=== PATIENT | male | born 1965 | race Two or more races ===

== ENCOUNTER 2019-12-27 00:38 | Inpatient (IN) | payer OTHER ==
[~2019-12-27] VITALS: Ht 167.6 cm; Wt 58.5 kg
[2019-12-27] VITALS (7 sets, daily range): BP systolic 92–116; BP diastolic 54–75
[2019-12-27] MEDS ORDERED: MAGNESIUM HYDROXIDE 30 ML UDC PO PRN (06:00)
[2019-12-27] MEDS ORDERED: MAG HYDROX/AL HYDROX/SIMETH 30 ML UDC PO PRN (06:00)
[2019-12-27] MEDS ORDERED: ONDANSETRON HCL/PF 4 MG/2 ML VIAL IVP PRN (06:00)
[2019-12-27] MEDS ORDERED: ZOLPIDEM TARTRATE 5 MG TABLET PO PRN (06:00)
[2019-12-27] MEDS ORDERED: Z GUARD REMEDY 2 OZ OINT TP PRN (06:00)
--- NOTE | 2019-12-27 06:30 | NUR ---
RN Notes Direct admit from [place], patient awake, alert and oriented x4, on room air with good saturation. Tele monitor reads sinus rhythm with heart rate at 98. Denies chest pain, SOB, nausea and vomiting. Vital signs stable, afebrile. Verbalizing pain on left lower leg and foot 5/10 when touch and walking. IV access on left AC patent and intact. Skin assessment done, intact. Plan of care and fall precaution discussed with the patient and verbalized understanding. Kept comfortable and attended with call light within reach. Awaiting for orders to verify. Will continue to monitor and will endorse accordingly.
[2019-12-27 07:09] LABS: BASOPHILS % (AUTO) 0.1 % (0.0-2.0); EOSINOPHILS % (AUTO) 0.4 % (0.0-6.0); HEMATOCRIT 28 % (39-51); HEMOGLOBIN 9.1 g/dL (13.5-17.5); LYMPHOCYTES # (AUTO) 0.6 /CMM (0.8-4.8); LYMPHOCYTES % (AUTO) 3.7 % (20.0-44.0); MEAN CORPUSCULAR HGB CONC 32 g/dl (31.0-36.0); MEAN CORPUSCULAR VOLUME 84 fL (80-96); MONOCYTES # (AUTO) 0.5 /CMM (0.1-1.30); MONOCYTES % (AUTO) 2.8 % (2.0-12.0); NEUTROPHILS # (AUTO) 16.2 /CMM (1.8-8.9); PLATELET COUNT (AUTO) 461 /CMM (150-450); RED BLOOD CELL COUNT(AUTO) 3.37 MIL/uL (4.5-6.0); WHITE BLOOD COUNT (AUTO) 17.4 K/uL (4.3-11.0)
[2019-12-27 07:18] LABS: ALBUMIN 1.8 g/dL (3.4-5.0); BILIRUBIN,DIRECT 0.2 mg/dL (0.0-0.2); BILIRUBIN,TOTAL 0.6 mg/dL (0.2-1.0); TOTAL PROTEIN, SERUM 6.5 g/dL (6.4-8.2)
[2019-12-27 07:20] LABS: CALCIUM, SERUM 8.9 mg/dL (8.5-10.1); CREATININE 0.7 mg/dL (0.6-1.3); MAGNESIUM 1.6 mg/dL (1.8-2.4); PHOSPHORUS 3.4 mg/dL (2.5-4.9); POTASSIUM 4.1 mmol/L (3.5-5.1)
--- NOTE | 2019-12-27 07:32 | NUR ---
RN Notes Received patient in bed resting comfortably in moderate high back rest. awake, alert and oriented x4, on room air, tolerating well. no signs of distress noted at this time. on Tele monitor reads sinus rhythm with heart rate at 90's. Denies chest pain, SOB, nausea and vomiting. IV access on left AC patent and intact. safety measures in place, bed in lowest locked position with side rails up x2. call light within reach. Will continue to monitor.
[2019-12-27] MEDS: IV NS 0.9% 1,000 ML IV SCH (08:21)
[2019-12-27] MEDS: Magnesium 1GM/D5W 100ML PREMIX 100 ML IV SCH ×2 (10:34→11:52)
[2019-12-27 14:35] LABS: APPEARANCE,URINE CLEAR (CLEAR); BILIRUBIN,URINE NEGATIVE (NEGATIVE); BLOOD, URINE LARGE Ery/uL (NEGATIVE); COLOR,URINE YELLOW (YELLOW); KETONES,URINE NEGATIVE (NEGATIVE); LEUKOCYTE ESTERASE ,URINE TRACE (NEGATIVE); NITRITE, URINE NEGATIVE (NEGATIVE); PROTEIN,URINE TRACE mg/dl (NEGATIVE); UGLUCOSE NEGATIVE (NEGATIVE)
[2019-12-27 14:48] LABS: BACTERIA,URINE 1+ /HPF (None Seen); COARSE GRANULAR CASTS,URINE Few /LPF (None Seen); HYALINE CASTS, URINE Few /LPF (None Seen); RBC,URINE 21-50 /HPF (0-2); SQUAMOUS EPITHELIAL CELL,UR Few /HPF (None Seen)
[2019-12-27] MEDS: ENSURE ENLIVE 237 ML LIQUID (VANILLA) PO SCH ×2 (16:03→17:07)
[2019-12-27] MEDS: ACETAMINOPHEN 325 MG TABLET PO PRN (17:07)
--- NOTE | 2019-12-27 18:35 | NUR ---
RN Notes patient in bed resting comfortably in moderate high back rest. awake, alert and oriented x4, on room air, tolerating well. no signs of distress noted throughout the shift. on Tele monitor reads sinus rhythm with heart rate at 90's. Denies chest pain, SOB, nausea and vomiting. IV fluids on left AC with NS running @100 ml/hr. patent and intact. safety measures in place, bed in lowest locked position with side rails up x2. call light within reach. Will endorse to shank piece tacker nurse for guzman.
--- NOTE | 2019-12-27 19:12 | NUR ---
MS RN NOTES PATIENT IN BED, AWAKE, ALERT AND ORIENTED X 4. BREATHING EVEN AND UNLABORED ON ROOM AIR. SHOWS NO SIGNS OF ACUTE RESPIRATORY DISTRESS. NO ACUTE PAIN. IV ON LAC 20G RUNNING NS AT 100ML/HR. SHOWS NO SIGNS OF INFILTRATION NO REDNESS. ITS CLEAN, DRY, AND INTACT. SAFETY PRECAUTIONS IN PLACE. BED IN LOWEST POSITION, LOCKED, AND CALL LIGHT KEPT WITHIN REACH. WILL CONTINUE TO MONITOR.
[2019-12-27] MEDS ORDERED: CEFTRIAXONE 1 G in IV D5W 50 ML IV SCH (20:00)
[2019-12-28 00:40] VITALS: BP 114/69
[2019-12-28] MEDS: IV NS 0.9% 1,000 ML IV SCH (02:15)
[2019-12-28 04:00] VITALS: BP 120/70
--- NOTE | 2019-12-28 06:41 | NUR ---
VIBRATION TECHNICIAN NOTES PATIENT IN BED, ASLEEP ALERT AND ORIENTED X 4. BREATHING EVEN AND UNLABORED ON ROOM AIR. SHOWS NO SIGNS OF ACUTE RESPIRATORY DISTRESS. NO ACUTE PAIN. IV ON RAC 20G RUNNING NS AT 100ML/HR. SHOWS NO SIGNS OF INFILTRATION NO REDNESS. ITS CLEAN, DRY, AND INTACT. ALL DUE MEDICATIONS GIVEN. SAFETY PRECAUTIONS IN PLACE. BED IN LOWEST POSITION, LOCKED, AND CALL LIGHT KEPT WITHIN REACH. WILL ENDORSE TO ONCOMING NURSE.
[2019-12-28 07:04] LABS: BASOPHILS # (AUTO) 0.1 /CMM (0.0-0.2); BASOPHILS % (AUTO) 0.4 % (0.0-2.0); EOSINOPHILS % (AUTO) 0.8 % (0.0-6.0); HEMATOCRIT 26 % (39-51); HEMOGLOBIN 8.5 g/dL (13.5-17.5); LYMPHOCYTES # (AUTO) 1.3 /CMM (0.8-4.8); LYMPHOCYTES % (AUTO) 8.8 % (20.0-44.0); MEAN CORPUSCULAR HGB CONC 33 g/dl (31.0-36.0); MEAN CORPUSCULAR VOLUME 83 fL (80-96); MONOCYTES # (AUTO) 0.6 /CMM (0.1-1.30); MONOCYTES % (AUTO) 4.1 % (2.0-12.0); NEUTROPHILS # (AUTO) 12.5 /CMM (1.8-8.9); NEUTROPHILS % (AUTO) 85.9 % (43.0-81.0); PLATELET COUNT (AUTO) 483 /CMM (150-450); RED BLOOD CELL COUNT(AUTO) 3.09 MIL/uL (4.5-6.0); WHITE BLOOD COUNT (AUTO) 14.6 K/uL (4.3-11.0)
--- NOTE | 2019-12-28 07:30 | NUR ---
INSPECTOR RETURNED MATERIALS NOTES RECEIVED PATIENT IN BED ASLEEP, AROUSABLE TO VERBAL AND TACTILE STIMULI. HOB ELEVATED. DENIES C/O PAIN AT THIS TIME. ON TELEMONITORING. SR: 96. RAC # 20 INFUSING NS @ 100ML/HR HAYLEY WELL. BED IN LOWEST POSITION, LOCKED. BED ALARM ON. CALL LIGHT WITHIN REACH. ABLE TO VERBALIZE NEEDS.
[2019-12-28 08:00] VITALS: BP 90/55
[2019-12-28 08:09] LABS: ALBUMIN 1.8 g/dL (3.4-5.0); BILIRUBIN,TOTAL 0.4 mg/dL (0.2-1.0); CALCIUM, SERUM 8.5 mg/dL (8.5-10.1); CREATININE 0.8 mg/dL (0.6-1.3); MAGNESIUM 1.8 mg/dL (1.8-2.4); POTASSIUM 3.6 mmol/L (3.5-5.1); TOTAL PROTEIN, SERUM 6.2 g/dL (6.4-8.2)
[2019-12-28 08:16] LABS: PROSTATE SPECIFIC ANTIGEN SCR 0.79 ng/mL (0.00-4.00); THYROID STIMULATING HORMONE 2.55 uIU/mL (0.358-3.74)
[2019-12-28 08:51] LABS: FREE PSA 0.1 ng/mL (0.00-45)
[2019-12-28] MEDS: ACETYLCYSTEINE 10% 3,000 MG/30 ML VIAL PO SCH ×2 (09:00→17:17)
[2019-12-28] MEDS: ENSURE ENLIVE 237 ML LIQUID (VANILLA) PO SCH ×3 (09:00→17:18)
[2019-12-28] MEDS: ASPIRIN EC 81 MG TABLET.DR PO SCH (09:00)
--- NOTE | 2019-12-28 09:48 | NUR ---
YOUTH SERVICES SPECIALIST NOTES AM MEDS HELD, AWAITING FOR CT OF ABD
--- NOTE | 2019-12-28 10:15 | NUR ---
ENGINEER INTERN NOTES PATIENT OFF UNIT, WENT FOR CT OF ABD
[2019-12-28] MEDS ORDERED: IOHEXOL-350 100 ML VIAL IV ONE (10:21)
[2019-12-28] MEDS ORDERED: CT SWABBABLE VALVE TRANS SET 1 EA INFUS.SET MC ONE (10:21)
[2019-12-28] MEDS ORDERED: IV NS 0.9% 250 ML IV ONE (10:21)
[2019-12-28] MEDS: IV NS 0.9% 1,000 ML IV PRN (13:18)
[2019-12-28 16:00] VITALS: BP 108/63
[2019-12-28] MEDS: ACETAMINOPHEN 325 MG TABLET PO PRN (17:17)
[2019-12-28] MEDS ORDERED: FEE PK DOSING 1 MIN EA MC ONE (18:27)
--- NOTE | 2019-12-28 18:47 | NUR ---
AUTOMOTIVE GLAZIER NOTES PATIENT RESTING COMFORTABLY IN BED CONVERSING WITH VISITORS. NO S/S OF RESPIRATORY DISTRESS. HOB ELEVATED. DENIES ANY C/O PAIN NOR DISCOMFORT AT THIS TIME. REMAINS ON TELEMONITORING. SR: 90-97. LEFT HAND # 22 INFUSING NS @ 100ML/HR HAYLEY WELL. LEFT AC #18 AND RIGHT AC # 20 SL INTACT AND PATENT. BED IN LOWEST POSITION, LOCKED. BED ALARM ON. CALL LIGHT WITHIN REACH. IN NO APPARENT DISTRESS.
[2019-12-28 20:00] VITALS: BP 94/60
[2019-12-28] MEDS: VANCOMYCIN 1 GM in IV D5W 250ml IV SCH (20:12)
[2019-12-28] MEDS: HYDROCODONE/APAP 5/325MG 1 EACH TABLET PO PRN (20:56)
[2019-12-28] MEDS: CEFTRIAXONE 2 G in IV D5W 100 ML IV SCH (21:17)
[2019-12-29] VITALS: BP 95/60
[2019-12-29] MEDS: IV NS 0.9% 1,000 ML IV PRN ×2 (01:23→15:21)
[2019-12-29 04:00] VITALS: BP 104/61
[2019-12-29] MEDS: VANCOMYCIN 1 GM in IV D5W 250ml IV SCH ×3 (04:42→20:04)
[2019-12-29] MEDS: HYDROCODONE/APAP 5/325MG 1 EACH TABLET PO PRN ×2 (04:52→08:18)
--- NOTE | 2019-12-29 06:23 | NUR ---
ACTING INSTRUCTOR NOTES AWAKE & RESPONSIVE. NOT IN ANY DISTRESS. NO SOB NOTED. DENIES ANY PAIN OR DISCOMFORT AT THIS TIME. ON TELE SR @ 65 WITH IVF INFUSING WELL. MONITORED ACCORDINGLY. CALL LIGHT WITHIN REACH. BED IN LOWEST POSITION. SR UP X 2 FOR SAFETY. WILL ENDORSE TO NEXT SHIFT.
[2019-12-29 07:19] LABS: BASOPHILS # (AUTO) 0.1 /CMM (0.0-0.2); BASOPHILS % (AUTO) 0.4 % (0.0-2.0); EOSINOPHILS % (AUTO) 1.9 % (0.0-6.0); HEMATOCRIT 25 % (39-51); HEMOGLOBIN 8.1 g/dL (13.5-17.5); LYMPHOCYTES # (AUTO) 1.2 /CMM (0.8-4.8); LYMPHOCYTES % (AUTO) 8.4 % (20.0-44.0); MEAN CORPUSCULAR HGB CONC 33 g/dl (31.0-36.0); MEAN CORPUSCULAR VOLUME 84 fL (80-96); MONOCYTES # (AUTO) 0.7 /CMM (0.1-1.30); MONOCYTES % (AUTO) 5.2 % (2.0-12.0); NEUTROPHILS # (AUTO) 11.6 /CMM (1.8-8.9); NEUTROPHILS % (AUTO) 84.1 % (43.0-81.0); PLATELET COUNT (AUTO) 449 /CMM (150-450); RED BLOOD CELL COUNT(AUTO) 2.93 MIL/uL (4.5-6.0); WHITE BLOOD COUNT (AUTO) 13.8 K/uL (4.3-11.0)
--- NOTE | 2019-12-29 07:23 | NUR ---
TELE/RN OPENING NOTES RECEIVED PATIENT AWAKE & RESPONSIVE. NOT IN ANY DISTRESS. NO SOB NOTED. DENIES ANY PAIN OR DISCOMFORT AT THIS TIME. ON TELE SR 73, WITH IVF INFUSING WELL. MONITORED ACCORDINGLY. CALL LIGHT WITHIN REACH. BED IN LOWEST POSITION. WILL CONTINUE TO MONITOR.
[2019-12-29 07:57] LABS: CALCIUM, SERUM 8.4 mg/dL (8.5-10.1); CREATININE 0.7 mg/dL (0.6-1.3); MAGNESIUM 1.6 mg/dL (1.8-2.4); PHOSPHORUS 3.6 mg/dL (2.5-4.9); POTASSIUM 3.3 mmol/L (3.5-5.1)
[2019-12-29 08:00] VITALS: BP 98/62
[2019-12-29] MEDS: ASPIRIN EC 81 MG TABLET.DR PO SCH (08:18)
[2019-12-29] MEDS: ENSURE ENLIVE 237 ML LIQUID (VANILLA) PO SCH ×5 (08:19→16:30)
[2019-12-29] MEDS: ACETYLCYSTEINE 10% 3,000 MG/30 ML VIAL PO SCH ×2 (08:27→16:31)
[2019-12-29] MEDS: Magnesium 1GM/D5W 100ML PREMIX 100 ML IV SCH ×2 (09:54→11:03)
[2019-12-29] MEDS ORDERED: POTASSIUM CHLORIDE 20 MEQ TAB.PRT.SR PO SCH (11:00)
[2019-12-29 11:33] LABS: IMMUNOGLOBULIN A, SERUM 310 mg/dL (90-386); IMMUNOGLOBULIN G, SERUM 1329 mg/dL (700-1600); IMMUNOGLOBULIN M, SERUM 141 mg/dL (20-172)
[2019-12-29 16:00] VITALS: BP 91/61
--- NOTE | 2019-12-29 18:28 | NUR ---
TELE/RN CLOSING NOTES PATIENT IS LYING ON THE BED COMFORTABLY ALERT AND ORIENTED X4. DENIES PAIN AT THIS TIME. NO RESPIRATORY DISTRESS AND NO SOB NOTED. STILL ON TELE MONITOR .IVF OF NS1L @ 100ML/HR INFUSING WELL. RAC 20G, LAC 18G, L HAND 22G INTACT AND PATENT. SEEN AND EXAMINED BY MD WITH ORDER MADE AND CARRIED OUT. ALL DUE MEDS WAS ADMINISTERED. PATIENT STILL PENDING FOR HIGHER LEVEL OF CARE FOR CARDIAC SURGERY. KEPT PATIENT DRY AND COMFORTABLE THE WHOLE SHIFT. SAFETY PRECAUTION WAS IN PLACE BED IN LOWEST POSITION, SIDE RAILS UP X2. CALL LIGHT WITHIN REACH. WILL ENDORSED TO CLINICAL NURSE EDUCATOR FOR NIKOLE.
--- NOTE | 2019-12-29 19:25 | NUR ---
TELE/RN OPENING NOTES RECEIVED PATIENT IN BED, AWAKE, ALERT X3. ABLER TO VERBALIZE NEEDS, [place]ER SPEAKING, CAN UNDERSTAND LITTLE SERBIAN, RESPIRATIONS EVEN AND UNLABORED, ON ROOM AIR, SKIN WARM TO TOUCH, DENIES PAIN AT THIS TIME, NO GUARDING OR GRIMACE. BED LOCKED, CALL LIGHTS WITHIN REACH, USES URINAL BUT CAN AMBULATE WITH SUPERVISION. RECEIVED ENDORSEMENT FROM AM RN FOR NIKOLE. IV FLUIDS BEING INFUSED , IV SITE WITH NO S/S OF INFILTRATION. WILL MONITOR, ON TELE READING AT SR.
[2019-12-29 20:00] VITALS: BP 93/45
[2019-12-29] MEDS: CEFTRIAXONE 2 G in IV D5W 100 ML IV SCH (21:43)
[2019-12-30] VITALS (7 sets, daily range): BP systolic 93–106; BP diastolic 45–63
[2019-12-30] MEDS: IV NS 0.9% 1,000 ML IV PRN ×2 (03:05→17:14)
[2019-12-30] MEDS: VANCOMYCIN 1 GM in IV D5W 250ml IV SCH ×3 (03:14→20:23)
--- NOTE | 2019-12-30 06:22 | NUR ---
321-2 TELE/RN CLOSING NOTES PATIENT ASSISTED WITH ALL NEEDS, SLEPT DURING THE NIGHT, ABLE TO COOPERATE WITH CARE. IV ANTIBIOTIC INFUSED, MONITORED FOR ANY CHANGES. ABLE TO URINATE AND WITH ADEQUATE URINE OUTPUT, BLOOD PRESSURE IN LOW SIDE. IV FLUIDS AT 10 ML/HR. KEPT COMFORTABLE. PAIN REPORTED BUT NON PHARMACOLOGICAL MEASURES PROVIDED,WILL ENDORSE TO AM RN FOR NIKOLE.
[2019-12-30 06:37] LABS: BASOPHILS % (AUTO) 0.4 % (0.0-2.0); EOSINOPHILS % (AUTO) 1.3 % (0.0-6.0); HEMATOCRIT 25 % (39-51); HEMOGLOBIN 8.2 g/dL (13.5-17.5); LYMPHOCYTES # (AUTO) 1.2 /CMM (0.8-4.8); LYMPHOCYTES % (AUTO) 10.1 % (20.0-44.0); MEAN CORPUSCULAR HGB CONC 33 g/dl (31.0-36.0); MEAN CORPUSCULAR VOLUME 84 fL (80-96); MONOCYTES # (AUTO) 0.6 /CMM (0.1-1.30); MONOCYTES % (AUTO) 4.9 % (2.0-12.0); NEUTROPHILS # (AUTO) 10.2 /CMM (1.8-8.9); NEUTROPHILS % (AUTO) 83.3 % (43.0-81.0); PLATELET COUNT (AUTO) 485 /CMM (150-450); RED BLOOD CELL COUNT(AUTO) 3.02 MIL/uL (4.5-6.0); WHITE BLOOD COUNT (AUTO) 12.3 K/uL (4.3-11.0)
[2019-12-30 07:15] LABS: CALCIUM, SERUM 8.4 mg/dL (8.5-10.1); CREATININE 0.7 mg/dL (0.6-1.3); MAGNESIUM 1.7 mg/dL (1.8-2.4); PHOSPHORUS 3.3 mg/dL (2.5-4.9); POTASSIUM 3.6 mmol/L (3.5-5.1)
--- NOTE | 2019-12-30 07:24 | NUR ---
WOOD TYPE FINISHER OPENING NOTES RECEIVED PATIENT AWAKE IN BED IN NO ACUTE SIGNS OF DISTRESS. A/O X4. VERBALLY RESPONSIVE, DENIES PAIN OR ANY DISCOMFORTS AT THIS TIME. OCCITAN SPEAKING, CAN UNDERSTAND LITTLE NIUEAN. ON ROOM AIR, RESPIRATIONS EVEN AND UNLABORED. TELE READING SHOWS SR WITH HR OF 78 AT THIS TIME, NO C/O CARDIAC DISTRESS VOICED AT THIS TIME. PIV'S ON LAC G#18 AND RAC G#20 BOTH INTACT AND PATENT, IVF OF NS @ 100ML/HR INFUSING TO LAC, NO S/S OF INFILTRATIONS NOTED AT SITE. BED LOCKED AND IN LOWEST POSITION. CALL LIGHTS WITHIN REACH. WILL CONTINUE TO MONITOR.
[2019-12-30] MEDS: ASPIRIN EC 81 MG TABLET.DR PO SCH (08:28)
[2019-12-30] MEDS: ENSURE ENLIVE 237 ML LIQUID (VANILLA) PO SCH ×3 (08:28→17:15)
[2019-12-30] MEDS: Magnesium 1GM/D5W 100ML PREMIX 100 ML IV SCH ×2 (11:48→13:16)
[2019-12-30 12:06] LABS: HIV SCRN 4G wRFX Non Reactive (Non Reactive)
--- NOTE | 2019-12-30 19:06 | NUR ---
PRECINCT POLICE SERGEANT CLOSING NOTES PATIENT AWAKE AND RESTING IN BED AT THIS TIME. A/O X4. VERBALLY RESPONSIVE. ESTONIAN SPEAKING, CAN UNDERSTAND LITTLE TURKMEN. ON ROOM AIR, RESPIRATIONS EVEN AND UNLABORED. TELE READING SHOWS SR WITH HR OF ON THE 70'S, NO C/O CARDIAC DISTRESS DURING SHIFT. PIV'S ON LAC G#18. L HAND G#22 AND RAC G#20 ALL INTACT AND PATENT, IVF OF NS @ 100ML/HR INFUSING TO LAC, NO S/S OF INFILTRATIONS NOTED AT SITE. BED LOCKED AND IN LOWEST POSITION. CALL LIGHTS WITHIN REACH. ALL NEEDS AND CARE ATTENDED WELL. WILL CONTINUE TO MONITOR
--- NOTE | 2019-12-30 19:25 | NUR ---
HARDBOARD PANEL PRINTER NOTES: RECEIVED PATIENT Patient in bed, A/O x4, appear comfortable in bed, denies pain. Sinus Rhythm in the Tele monitor, tolerating room air, denies SOB. Patient to be transferred to [facility] for higher level of care, pending bed available, CM following. Maintained safety.
--- NOTE | 2019-12-30 19:36 | NUR ---
RN NOTES CALLED AND SPOKED TO RASHEED COCHRAN REGARDING PT'S TRANSFER TO [facility]. SHE SAID THAT NO BED AVAILABLE AT THIS TIME AND ONCE THERE'S A BED AVAILABLE, [facility] STAFF WILL CALL AND INFORMED UNIT. NIGHT PRIYA MOFFETT INFORMED.
[2019-12-30] MEDS: CEFTRIAXONE 2 G in IV D5W 100 ML IV SCH (21:55)
[2019-12-31 00:01] VITALS: BP 90/61
[2019-12-31 00:10] VITALS: BP 90/61
[2019-12-31] MEDS: IV NS 0.9% 1,000 ML IV PRN (03:34)
[2019-12-31 04:00] VITALS: BP 90/48
[2019-12-31] MEDS: VANCOMYCIN 1 GM in IV D5W 250ml IV SCH ×2 (04:19→11:52)
[2019-12-31 05:07] LABS: *SPE A/G RATIO 0.6 (0.7-1.7); *SPE ALPHA-1-GLOBULIN 0.4 g/dL (0.0-0.4); *SPE ALPHA-2-GLOBULIN 0.8 g/dL (0.4-1.0); *SPE BETA GLOBULIN 0.9 g/dL (0.7-1.3); *SPE GLOBULIN, TOTAL 3.3 g/dL (2.2-3.9); *SPE M-SPIKE Not Observed g/dL (Not Observed); *SPEGAMMA GLOBULIN 1.2 g/dL (0.4-1.8)
--- NOTE | 2019-12-31 06:18 | NUR ---
CITIZENSHIP INSTRUCTOR NOTES: END OF SHIFT REPORT Patient in bed, tolerating room air, denies SOB. Sinus Rhythm in the Tele monitor. IV antibiotic as scheduled, afebrile overnight, IVF maintained. Pending transfer to [facility], awaiting bed available, CM following.
[2019-12-31 07:19] LABS: BASOPHILS % (AUTO) 0.3 % (0.0-2.0); EOSINOPHILS % (AUTO) 1.5 % (0.0-6.0); HEMATOCRIT 25 % (39-51); HEMOGLOBIN 8.2 g/dL (13.5-17.5); LYMPHOCYTES # (AUTO) 1.4 /CMM (0.8-4.8); LYMPHOCYTES % (AUTO) 12.2 % (20.0-44.0); MEAN CORPUSCULAR HGB CONC 33 g/dl (31.0-36.0); MEAN CORPUSCULAR VOLUME 84 fL (80-96); MONOCYTES # (AUTO) 0.7 /CMM (0.1-1.30); MONOCYTES % (AUTO) 6.4 % (2.0-12.0); NEUTROPHILS # (AUTO) 9.2 /CMM (1.8-8.9); NEUTROPHILS % (AUTO) 79.6 % (43.0-81.0); PLATELET COUNT (AUTO) 483 /CMM (150-450); RED BLOOD CELL COUNT(AUTO) 3.01 MIL/uL (4.5-6.0); WHITE BLOOD COUNT (AUTO) 11.6 K/uL (4.3-11.0)
--- NOTE | 2019-12-31 07:28 | NUR ---
rn opening notes Patient received on room air, no sob noted, patient denies pain at this time. TELE at this time and is showing SR rhythm. R AC 20 L AC 18 and L HAND 22 all present at this time with NS 100 ml per hour. Vanco trough scheduled today. Transfer to [facility] for valve replacement pending at this time. Bed at the lowest setting, call light within reach, side rails up x2.
[2019-12-31 07:34] LABS: CALCIUM, SERUM 8.4 mg/dL (8.5-10.1); CREATININE 0.7 mg/dL (0.6-1.3); MAGNESIUM 1.8 mg/dL (1.8-2.4); POTASSIUM 3.5 mmol/L (3.5-5.1)
[2019-12-31 08:00] VITALS: BP 101/59
[2019-12-31 08:12] LABS: AFP, TUMOR MARKER 2.3 ng/mL (0.0-8.3); CARBOHYDRATE AG 19-9 3 U/mL (0-35)
[2019-12-31] MEDS: ENSURE ENLIVE 237 ML LIQUID (VANILLA) PO SCH ×3 (09:15→17:19)
[2019-12-31] MEDS: ASPIRIN EC 81 MG TABLET.DR PO SCH (09:15)
[2019-12-31 16:00] VITALS: BP 109/72
--- NOTE | 2019-12-31 18:07 | NUR ---
rn closing notes Patient remains on room air, no sob noted, patient denies pain at this time. A/O x4. R AC 20 remains and will stay with patient when he gets transferred to [facility]. Patient to be picked up around 1929. Patient has signed all paper work and all belongings with him at this time. Bed at the lowest setting, call light within reach, side rails up x2. Will give report to NOC RN for NIKOLE bedside.
--- NOTE | 2019-12-31 19:30 | NUR ---
PATIENT PICKED UP BY TRANSPORTATION VIA GURNEY IN STABLE CONDITION. PATIENT TRANSFERRED FOR HLOC. NO C/O PAIN OR DISCOMFORT. PERIPHERAL LINE LEFT IN PLACE AND FUNCTIONING PROPERLY. ALL BELONGINGS TAKEN WITH PATIENT. DISCHARGE PACKET GIVEN TO SHARIFA.
== END 2019-12-31 19:45 | disposition short-term general hospital (02) | DRG 720 ==
LOC: MED 05:04 → TELE 10:42 → MED 12-31 11:09
PROVIDERS: ADMIT Nurse Practitioner Acute Care; ATTEND Registered Nurse
DX: A41.9 Sepsis, unspecified organism (principal); I21.A1 Myocardial infarction type 2; E43 Unspecified severe protein-calorie malnutrition; I33.0 Acute and subacute infective endocarditis; E88.09 Other disorders of plasma-protein metabolism, not elsewhere classified; I36.1 Nonrheumatic tricuspid (valve) insufficiency; F41.9 Anxiety disorder, unspecified; D63.8 Anemia in other chronic diseases classified elsewhere; K76.89 Other specified diseases of liver; N40.0 Benign prostatic hyperplasia without lower urinary tract symptoms; Z79.82 Long term (current) use of aspirin; I10 Essential (primary) hypertension; I34.1 Nonrheumatic mitral (valve) prolapse; R74.0 Nonspecific elevation of levels of transaminase and lactic acid dehydrogenase [LDH]; D47.3 Essential (hemorrhagic) thrombocythemia; L03.116 Cellulitis of left lower limb; Z68.20 Body mass index [BMI] 20.0-20.9, adult; R63.4 Abnormal weight loss; I34.0 Nonrheumatic mitral (valve) insufficiency
CPT/HCPCS: 36415; 71046; 74178; 80048-TC; 80053-TC; 80061-TC; 80074; 80076-TC; 80202-TC; 81000-TC; 82105; 82378; 82728-TC; 82784; 83540-TC; 83605-TC; 83615-TC; 83735-TC; 83880; 84100-TC; 84153-TC; 84154-TC; 84155; 84165; 84443-TC; 84484-TC; 85025-TC; 86301; 86334; 87040-TC; 87081-TC; 87086-TC; 93307-TC; 93971-TC; G0378; J0696; J3370; J3475; J7030; J7050; J7060; Q9967